=== PATIENT | female | born 1940 | race Caucasian/White ===

== ENCOUNTER 2016-10-25 13:07 | Emergency (ER) | payer MEDICARE ==
[~2016-10-25] VITALS: Ht 160 cm; Wt 45.0 kg
[2016-10-25 13:11] VITALS: BP 123/61; PULSE 73; RESP 18; TEMP 98.1; O2SAT 95
[2016-10-25] MEDS ORDERED: TETANUS/DIPHTHERIA TOXOID ADULT 0.5 ML VIAL IM ONE (13:45)
[2016-10-25] MEDS ORDERED: SODIUM CHLOR 0.9% 1000 ML INJ 1,000 ML IV ONE (13:45)
--- NOTE | 2016-10-25 13:51 | PD ---
HPI Chief Complaint: Syncope/Near-Syncope Time Seen by Provider: 13:37 Travel History International Travel<30 days: No Contact w/Intl Traveler<30days: No Traveled to known affect area: No History of Present Illness HPI 76-year-old female was brought in by family member for syncope. Patient had minimal fluid water at this morning. Patient went to the beach this morning. Patient was leaving the beach and had a 1-2 minutes syncopal episode. Patient states that she fell nausea and palpitation prior to the episode. Patient fell on the right side and hit the right side of face and head. Patient denies any headache. Patient denies any visual change. Patient denies any neck pain. Patient denies any chest pain or shortness of breath. Patient denies abdominal pain. Patient states that she has mild pain prepatellar area of the left knee. Patient denies any focal weakness and numbness of extremity. Patient denies any history of syncope. Patient denies any history of TIA or CVA. PFSH Past Medical History ?: Not Social History Tobacco Use: No Allergies-Medications (Allergen,Severity, Reaction): Coded Allergies: No Known Allergies (Unverified , 10/25/16) Reported Meds & Prescriptions Reported Meds & Active Scripts Active Active Prescriptions or Reported Medications Unobtainable Review of Systems General / Constitutional: No: Fever Eyes: No: Visual changes HENT: No: Headaches Cardiovascular: No: Chest Pain or Discomfort Respiratory: No: Shortness of Breath Gastrointestinal: No: Abdominal Pain Genitourinary: No: Dysuria Musculoskeletal: Positive: Pain Skin: No Rash Neurologic: Positive: Syncope, No: Weakness Psychiatric: No: Depression Endocrine: No: Polydipsia Hematologic/Lymphatic: No: Easy Bruising Physical Exam Narrative GENERAL: Well-nourished, well-developed patient. SKIN: Focused skin assessment warm/dry. HEAD: Normocephalic. EYES: No scleral icterus. No injection or drainage. NECK: Supple, trachea midline. No JVD or lymphadenopathy. CARDIOVASCULAR: Regular rate and rhythm without murmurs, gallops, or rubs. RESPIRATORY: Breath sounds equal bilaterally. No accessory muscle use. GASTROINTESTINAL: Abdomen soft, non-tender, nondistended. MUSCULOSKELETAL: No cyanosis, or edema. Mild tenderness on palpation prepatellar area of the left knee. Minor skin abrasion prepatellar both knees. Knee joints stable. No effusion noted. BACK: Nontender without obvious deformity. No CVA tenderness. Neurologic exam: Patient is awake and alert oriented 3. No obvious focal neurological deficit. Data Data Last Documented VS Vital Signs Date Time Temp Pulse Resp B/P Pulse Ox O2 Delivery O2 Flow Rate FiO2 10/25/16 16:19 68 16 154/71 98 10/25/16 15:30 Room Air 10/25/16 13:11 98.1 Orders Complete Blood Count With Diff (10/25/16 13:43) Basic Metabolic Panel (Bmp) (10/25/16 13:43) Urinalysis - C+S If Indicated (10/25/16 13:43) Chest, Single Ap (10/25/16 13:43) Ct Brain W/O Iv Contrast(Rout) (10/25/16 13:43) Iv Access Insert/Monitor (10/25/16 13:43) Ecg Monitoring (10/25/16 13:43) Oximetry (10/25/16 13:43) Sodium Chlor 0.9% 1000 Ml Inj (Ns 1000 M (10/25/16 13:45) Knee, Ltd (1 Or 2vws) (10/25/16 13:45) Tetanus/Diphtheria Tox Adult (Tetanus/Di (10/25/16 13:45) Electrocardiogram (10/25/16 13:25) Labs Laboratory Tests Test 10/25/16 10/25/16 14:20 14:30 White Blood Count 11.8 TH/MM3 Red Blood Count 4.42 MIL/MM3 Hemoglobin 13.7 GM/DL Hematocrit 40.5 % Mean Corpuscular Volume 91.6 FL Mean Corpuscular Hemoglobin 31.0 PG Mean Corpuscular Hemoglobin 33.8 % Concent Red Cell Distribution Width 14.4 % Platelet Count 667 TH/MM3 Mean Platelet Volume 7.2 FL Neutrophils (%) (Auto) 79.6 % Lymphocytes (%) (Auto) 11.1 % Monocytes (%) (Auto) 5.8 % Eosinophils (%) (Auto) 2.3 % Basophils (%) (Auto) 1.2 % Neutrophils # (Auto) 9.4 TH/MM3 Lymphocytes # (Auto) 1.3 TH/MM3 Monocytes # (Auto) 0.7 TH/MM3 Eosinophils # (Auto) 0.3 TH/MM3 Basophils # (Auto) 0.1 TH/MM3 CBC Comment AUTO DIFF Differential Comment AUTO DIFF CONFIRMED Platelet Estimate HIGH Platelet Morphology Comment NORMAL Sodium Level 145 MEQ/L Potassium Level 5.2 MEQ/L Chloride Level 108 MEQ/L Carbon Dioxide Level 31.0 MEQ/L Anion Gap 6 MEQ/L Blood Urea Nitrogen 20 MG/DL Creatinine 1.00 MG/DL Estimat Glomerular Filtration 54 ML/MIN Rate Random Glucose 98 MG/DL Calcium Level 9.9 MG/DL Urine Collection Type CLEAN CATCH Urine Color YELLOW Urine Turbidity SLIGHT Urine pH 6.5 Urine Specific [place] 1.019 Urine Protein TRACE mg/dL Urine Glucose (UA) NEG mg/dL Urine Ketones NEG mg/dL Urine Occult Blood TRACE Urine Nitrite NEG Urine Bilirubin NEG Urine Leukocyte Esterase TRACE Urine RBC 0-3 /hpf Urine WBC 0-2 /hpf Urine Squamous Epithelial 6-8 /hpf Cells Urine Amorphous Sediment FEW Microscopic Urinalysis Comment CULT NOT INDICATED Urine Collection Time 1430 MDM Medical Decision Making Medical Screen Exam Complete: Yes Emergency Medical Condition: Yes Interpretation(s) Last Impressions Knee X-Ray 10/25/16 1345 Signed Impressions: Service Date/Time: Tuesday, October 25, 2016 14:05 - CONCLUSION: Normal examination for a patient of this age. Sean Merino MD Chest X-Ray 10/25/16 1343 Signed Impressions: Service Date/Time: Tuesday, October 25, 2016 14:02 - CONCLUSION: 1. Minimal basilar airspace disease most characteristic of atelectasis. No effusion. No pneumothorax. Sean Merino MD 1534 PM. CBC WBC 11.8. 79 neutrophil. Potassium 5.2. Chloride 108. BUN 20. UA is negative. Differential Diagnosis Differential diagnosis including vasovagal reaction, electrolyte abnormality, dehydration, arrhythmia, TIA, CVA. Narrative Course 76-year-old female with syncope and left knee injury. Normal saline solution 1 L IV bolus. Diagnosis Primary Impression: Syncope Qualified Code: R55 - Syncope, unspecified syncope type Additional Impressions: Dehydration Contusion of left knee Qualified Code: S80.02XA - Contusion of left knee, initial encounter Patient Instructions: General Instructions Additional Instructions: Courage by mouth fluid. Follow-up with personal physician. Return as needed. Med/Other Pt SpecificInfo: No Change to Meds Scripts Unable to Obtain Active Prescriptions or Reported Meds Disposition: DISCHARGE HOME Condition: Stable Rafal Chilel MD Oct 25, 2016 13:51
[2016-10-25 14:00] VITALS: O2SAT 96
[2016-10-25 14:36] LABS: AUTOMATED NEUTROPHIL # 9.4 TH/MM3 (1.8-7.7); BASOPHIL # 0.1 TH/MM3 (0-0.2); BASOPHIL % 1.2 % (0.0-2.0); EOSINOPHIL # 0.3 TH/MM3 (0-0.4); EOSINOPHIL % 2.3 % (0.0-4.0); HEMATOCRIT 40.5 % (35.0-46.0); LYMPH % 11.1 % (9.0-44.0); LYMPHOCYTE # 1.3 TH/MM3 (1.0-4.8); MEAN CELL VOLUME 91.6 FL (80.0-100.0); MEAN CORPUSCULAR HGB CONC 33.8 % (32.0-36.0); MONO % 5.8 % (0.0-8.0); NEUT % 79.6 % (16.0-70.0); PLATELET COUNT 667 TH/MM3 (150-450); RED BLOOD COUNT 4.42 MIL/MM3 (4.00-5.30); RED CELL DISTRIBUTION WIDTH 14.4 % (11.6-17.2); WHITE BLOOD COUNT 11.8 TH/MM3 (4.0-11.0)
[2016-10-25 14:44] LABS: HEMO FLAGS AUTO DIFF; POTASSIUM 5.2 MEQ/L (3.5-5.1)
[2016-10-25 14:49] LABS: BLOOD, URINE TRACE (NEG); GLUCOSE,URINE NEG (NEG); KETONE, URINE NEG (NEG); NITRITE,URINE NEG (NEG); PH, URINE 6.5 (5.0-8.5)
--- NOTE | 2016-10-25 14:49 | RADRPT ---
EXAM DATE/TIME: 10/25/2016 14:02 [facility] COMPARISON: No previous studies available for comparison. INDICATIONS : Syncope with fall today MEDICAL HISTORY : None. SURGICAL HISTORY : None. ENCOUNTER: Initial ACUITY: 1 day PAIN SCORE: 5/10 LOCATION: Bilateral chest FINDINGS: A single view of the chest demonstrates minimal basilar airspace disease. No effusion. No pneumothora x. Heart size within normal limits. Tortuous aorta. CONCLUSION: 1. Minimal basilar airspace disease most characteristic of atelectasis. No effusion. No pneumothorax. Sean Merino MD on October 25, 2016 at 14:44 Board Certified Radiologist. This report was verified electronically.
--- NOTE | 2016-10-25 14:53 | RADRPT ---
EXAM DATE/TIME: 10/25/2016 14:05 [facility] COMPARISON: No previous studies available for comparison. INDICATIONS : Fell, left knee pain MEDICAL HISTORY : None. SURGICAL HISTORY : None. ENCOUNTER: Initial ACUITY: 1 day PAIN SCORE: 5/10 LOCATION: Left knee FINDINGS: Two view examination of the left knee demonstrates no evidence of fracture or dislocation. Bony mine ralization is normal. The suprapatellar soft tissues have a normal configuration. CONCLUSION: Normal examination for a patient of this age. Sean Merino MD on October 25, 2016 at 14:51 Board Certified Radiologist. This report was verified electronically.
[2016-10-25 15:02] LABS: METHOD OF COLLECTION CLEAN CATCH; URINE COLOR YELLOW (YELLW/STRAW)
[2016-10-25 15:03] LABS: COMMENT (UR) CULT NOT INDICATED; COMMENT2 (UR) MUCOUS PRESENT; CULTURE IF INDICATED CULT NOT INDICATED; RBC, URINE 0-3 /hpf (0-3); WBC, URINE 0-2 /hpf (0-5)
[2016-10-25 15:13] LABS: PLATELET ESTIMATE SMEAR HIGH (NORMAL); PLATELET MORPHOLOGY NORMAL (NORMAL); SCAN/DIFF AUTO DIFF CONFIRMED
[2016-10-25 15:30] VITALS: BP 137/69; PULSE 68; RESP 16; O2SAT 98
--- NOTE | 2016-10-25 15:38 | RADRPT ---
EXAM DATE/TIME: 10/25/2016 14:54 [facility] COMPARISON: No previous studies available for comparison. INDICATIONS : Fall. RADIATION DOSE: 61.90 CTDIvol (mGy) MEDICAL HISTORY : Hypertension. SURGICAL HISTORY : None. ENCOUNTER: Initial ACUITY: 1 day PAIN SCALE: 2/10 LOCATION: cranial TECHNIQUE: Multiple contiguous axial images were obtained of the head. Using automated exposure control and adj ustment of the mA and/or kV according to patient size, radiation dose was kept as low as reasonably a chievable to obtain optimal diagnostic quality images. DICOM format image data is available electro nically for review and comparison. FINDINGS: CEREBRUM: The ventricles are normal for age. No evidence of midline shift, mass lesion, hemorrhage or acute in farction. No extra-axial fluid collections are seen. POSTERIOR FOSSA: The cerebellum and brainstem are intact. The 4th ventricle is midline. The cerebellopontine angle i s unremarkable. EXTRACRANIAL: The visualized portion of the orbits is intact. SKULL: The calvaria is intact. No evidence of skull fracture. CONCLUSION: Normal examination for a patient of this age. Sean Merino MD on October 25, 2016 at 15:35 Board Certified Radiologist. This report was verified electronically.
[2016-10-25 16:19] VITALS: BP 154/71
--- NOTE | 2016-10-26 14:08 | EKG ---
Date Performed: 10/25/2016 Time Performed: 13:25:32 PTAGE: 76 years EKG: Sinus rhythm POSSIBLE RIGHT VENTRICULAR CONDUCTION DELAY BORDERLINE ECG NO PREVIOUS TRACING DOCTOR: Casey Mock Interpretating Date/Time 10/26/2016 14:07:48
== END 2016-10-25 16:21 | disposition home or self-care (01) ==
LOC: PHED 13:07
DX: R55 Syncope and collapse (principal); E86.0 Dehydration; S80.02XA Contusion of left knee, initial encounter; R94.31 Abnormal electrocardiogram [ECG] [EKG]; Z23 Encounter for immunization; W18.39XA Other fall on same level, initial encounter; Y92.832 Beach as the place of occurrence of the external cause
CPT/HCPCS: 70450; 71010; 73560; 80048; 81001; 85025; 90471; 90714; 93005; 96360; 99285; J7030